=== PATIENT | male | born 1965 | race Two or more races ===

== ENCOUNTER 2023-07-05 21:25 | Inpatient (IN) | payer OTHER ==
[~2023-07-05] VITALS: Ht 175.3 cm; Wt 88.5 kg
[2023-07-05] MEDS ORDERED: LOSARTAN POTAS100 MG PO (21:56)
[2023-07-05] MEDS ORDERED: NORVASC5 MG PO (21:56)
--- NOTE | 2023-07-05 21:56 | NUR ---
PTE ALERTA Y ORIENTADO X3 QUIEN REFIERE VENIR POR DRENAJE DE ABSCESO EN EL ABDOMEN. PTE REFIERE QUE ABSCESO APARECIA EL JOVANI SABADO Y QUE EN LA CLINICA DE EMPLEADO LE RECETARON AUMENTIN DE 875MG
[2023-07-05] MEDS ORDERED: 0.9 % SODIUM CHLORIDE 1,000 ML IV SCH (22:45)
[2023-07-05] MEDS ORDERED: VANCOMYCIN HCL 1,000 MG VIAL IV ONE (22:45)
[2023-07-05] MEDS ORDERED: KETOROLAC TROMETHAMINE 30 MG VIAL IV ONE (22:45)
--- NOTE | 2023-07-05 23:28 | NUR ---
PACIENTE EVALUADO POR DR FATIMA QUIEN ORDENA TRATAMIENTO MEDICO, SE LE ORIENTA A PACIENTE SOBRE EL MISMO Y VERBALIZA ENTNEDER, SE LE COLECTAN MUESTRAS DE LABORATORIO Y SE CANALIZA BAJO MEDIDAS ASEPTICAS, SE LE ADMINISTRAN MED SEGU ORDEN, PACIENTE TOLERA LOS MISMOS Y NO PRESENTA REACCION ADVERSA. PENDIENTE ESTUDIO DE CT.
[2023-07-05 23:43] LABS: HEMATOCRIT 40.6 % (39.0-48.0); HEMOGLOBIN 13.5 g/dL (13-16.00); MEAN CELL VOLUME 87.7 fL (80.0-100.00); MEAN CORPUSCULAR HEMOGLOBIN 29.1 pg (27.00-32.0); MEAN CORPUSCULAR HGB CONC 33.2 g/dl (32.0-36.0); PLATELET COUNT 273 K/uL (150-450); RED BLOOD COUNT 4.63 M/uL (4.00-6.00); RED CELL DISTRIBUTION WIDTH 14.7 % (11.5-14.5)
[2023-07-05 23:50] LABS: ERYTHROCYTE SEDIMENTATION RATE 53 mm/hr
[2023-07-06] LABS: ALBUMIN 3.4 gm/dL (3.4-5.0); BILIRUBIN TOTAL 0.99 mg/dL (0.3-1.2); CALCIUM 8.8 mg/dL (8.5-10.1); CREATININE SERUM 0.98 mg/dL (0.70-1.30); GFR 78.28; GLOBULINA 4.3 G/DL (2.4-3.5); POTASSIUM 3.67 mEq/L (3.5-5.1); TOTAL PROTEIN 7.7 gm/dL (6.4-8.2)
[2023-07-06 00:01] LABS: C-REACTIVE PROTEIN 6.28 MG/DL (0.00-0.29)
[2023-07-06] MEDS ORDERED: KETOROLAC TROMETHAMINE 30 MG VIAL IV STA (04:50)
--- NOTE | 2023-07-06 06:36 | NUR ---
PACIENTE INDICA QUE SE LE REMOVIO LA VENOPUNCION. SE CANULA VENA EN BRAZO DERECHO CON ANGIO #20 AREA TESSY DE EDEMA Y ERITEMA. SE MANTIENE EN OBSERVACION POR CAMBIOS.
--- NOTE | 2023-07-06 07:48 | NUR ---
SE RECIBE PTE ALERTA Y ORIENTADO X3. EN NICHOL BAJA CON BARANDAS ELEVADAS POR SEGURIDAD. SE OBSERVA CON BUEN PATRON RESPIRATORIO. CANALIZACION PATENTE, TESSY DE EDEMA Y ERITEMA, RECIBIENDO IV FLUIDS. PENDIENTE CONSULTA CON DR. BROWNING POR ABDOMINAL CELLULITIS
[2023-07-06] MEDS ORDERED: 0.9 % SODIUM CHLORIDE 1,000 ML IV SCH (08:15)
[2023-07-06] MEDS ORDERED: LOSARTAN POTASSIUM 100 MG TABLET PO SCH (09:00)
[2023-07-06] MEDS ORDERED: KETOROLAC TROMETHAMINE 30 MG VIAL IM SCH (09:00)
[2023-07-06] MEDS ORDERED: AMLODIPINE BESYLATE 5 MG TABLET PO SCH (09:00)
[2023-07-06] MEDS ORDERED: PIPERACILLIN/TAZOBACTAM SODIUM 3.375 GM VIAL IV SCH (12:00)
[2023-07-06] MEDS ORDERED: VANCOMYCIN HCL 5 MG/ML REDILUIDO IV SCH (17:00)
[2023-07-07] MEDS ORDERED: CHLORHEXIDINE GLUCONATE 120 ML BOTTLE TOP SCH (17:00)
[2023-07-07] MEDS ORDERED: MUPIROCIN 22 GM OINT..GM TUBE NASAL SCH (17:00)
[2023-07-09] MEDS ORDERED: KETOROLAC TROMETHAMINE 30 MG VIAL IV PRN (12:30)
[2023-07-10] MEDS ORDERED: VANCOMYCIN HCL 5 MG/ML REDILUIDO IV SCH (17:00)
[2023-07-11 06:55] LABS: HEMATOCRIT 39.9 % (39.0-48.0); HEMOGLOBIN 13.5 g/dL (13-16.00); MEAN CELL VOLUME 88.9 fL (80.0-100.00); MEAN CORPUSCULAR HEMOGLOBIN 30.1 pg (27.00-32.0); MEAN CORPUSCULAR HGB CONC 33.9 g/dl (32.0-36.0); PLATELET COUNT 254 K/uL (150-450); RED BLOOD COUNT 4.49 M/uL (4.00-6.00); RED CELL DISTRIBUTION WIDTH 14.8 % (11.5-14.5)
[2023-07-11 07:08] LABS: ALBUMIN 3.1 gm/dL (3.4-5.0); BILIRUBIN TOTAL 0.25 mg/dL (0.3-1.2); CALCIUM 8.7 mg/dL (8.5-10.1); CREATININE SERUM 0.94 mg/dL (0.70-1.30); GFR 82.14; GLOBULINA 3.5 G/DL (2.4-3.5); MAGNESIUM 2.3 mg/dL (1.8-2.4); PHOSPHOROUS 3.5 mg/dL (2.5-4.9); POTASSIUM 4.18 mEq/L (3.5-5.1); TOTAL PROTEIN 6.6 gm/dL (6.4-8.2)
[2023-07-11 07:11] LABS: C-REACTIVE PROTEIN 0.31 MG/DL (0.00-0.29)
== END 2023-07-11 15:57 | disposition home or self-care (01) | DRG 603 ==
LOC: ER 21:25 → MEDI 07-06 09:31 → MEDJ 07-07 16:39
PROVIDERS: General Practice; Internal Medicine Infectious Disease; ADMIT Internal Medicine; ATTEND Internal Medicine
PROC: BW21YZZ Computerized Tomography (CT Scan) of Abdomen and Pelvis using Other Contrast (ICD-10-PCS; principal; 2023-07-05)
DX: L02.211 Cutaneous abscess of abdominal wall (principal); L03.311 Cellulitis of abdominal wall; B95.62 Methicillin resistant Staphylococcus aureus infection as the cause of diseases classified elsewhere

== ENCOUNTER 2024-04-18 10:22 | Day surgery (SDC) | payer OTHER ==
[2024-04-15 08:08] LABS: PH,URINE 5.5 (5.0-8.0); URINE APPEARANCE Clear; URINE BILIRRUBIN Negative (NEGATIVE); URINE BLOOD Trace; URINE COLOR Yellow; URINE GLUCOSE Negative (NEGATIVE); URINE KETONE Negative (NEGATIVE); URINE LEUKOCYTE Negative; URINE NITRATE Negative; URINE PROTEIN Negative (NEGATIVE)
[2024-04-15 08:09] LABS: HEMATOCRIT 42.8 % (39.0-48.0); HEMOGLOBIN 14.5 g/dL (13-16.00); MEAN CELL VOLUME 90.4 fL (80.0-100.00); MEAN CORPUSCULAR HEMOGLOBIN 30.6 pg (27.00-32.0); MEAN CORPUSCULAR HGB CONC 33.8 g/dl (32.0-36.0); PLATELET COUNT 248 K/uL (150-450); RED BLOOD COUNT 4.73 M/uL (4.00-6.00); RED CELL DISTRIBUTION WIDTH 13.8 % (11.5-14.5)
[2024-04-15 08:11] LABS: URINE EPITHELIAL CELLS 2.4 uL (0.0-38.8); URINE RBC 10.9 uL (0.0-20.8); URINE WBC 3.3 uL (0.0-23.2)
[2024-04-15 08:24] LABS: URINE CAST 0.15 uL (0.0-1.40)
[2024-04-15 08:53] LABS: CALCIUM 9.2 mg/dL (8.5-10.1); CREATININE SERUM 1.07 mg/dL (0.70-1.30); GFR 70.49; POTASSIUM 4.09 mEq/L (3.5-5.1)
[2024-04-15 08:58] LABS: INR 0.97; PARTIAL THROMBOPLASTIN TIME 27.8 SECONDS (22.0-34.0); PROTHROMBIN TIME 10.6 SECONDS (9.0-11.5)
[~2024-04-18 10:22] MED LIST: KETO10TA2 PO; LOSARTAN POTAS100 MG PO; MIRALAX17 GM PO; NORVASC5 MG PO; TRAMADOL HCL50 MG PO; TYLENOL ARTHRI650 MG PO
[2024-04-18] MEDS ORDERED: CEFAZOLIN SODIUM 1,000 MG VIAL IV ONE (13:45)
[2024-04-18] MEDS ORDERED: BUPIVACAINE HCL 30 ML VIAL IJ ONE (13:45)
[2024-04-18] MEDS ORDERED: MORPHINE SULFATE 4 MG/ML VIAL IV ONE ×2 (15:10→15:40)
== END 2024-04-18 21:40 | disposition home or self-care (01) ==
LOC: CIR.AMB 10:22
PROVIDERS: ATTEND Surgery
DX: K40.90 Unilateral inguinal hernia, without obstruction or gangrene, not specified as recurrent (principal); K42.0 Umbilical hernia with obstruction, without gangrene
CPT/HCPCS: 49650; 49592; C1781